=== PATIENT | female | born 1980 | race Caucasian/White ===

== ENCOUNTER 2024-02-26 22:32 | Emergency (ER) | payer MEDICAID, OTHER ==
[~2024-02-26] VITALS: Ht 165.1 cm; Wt 85.9 kg
[~2024-02-26 22:32] MED LIST: ASPI-12 PO; BACL10TA PO; BUPR-345 PO; FENT-93 TD; GABA-1181 PO; OXYC20TA58 PO; SERT-162 PO; SULF1TAB42 PO; TEMA15CA PO
[2024-02-26 22:49] VITALS: BP 161/93; PULSE 89; RESP 18; TEMP 97.9
[2024-02-26] MEDS ORDERED: KETOROLAC TROMETHAMINE 30 MG/ML VIAL IM ONE (23:45)
[2024-02-26] MEDS ORDERED: OXYC-490 PO (23:59)
== END 2024-02-27 01:30 | disposition home or self-care (01) ==
LOC: EMS 22:32
DX: G89.29 Other chronic pain (principal)
CPT/HCPCS: 99283